=== PATIENT | male | born 1995 | race Caucasian/White ===

== ENCOUNTER 2018-12-26 10:11 | Emergency (ER) | payer OTHER ==
[~2018-12-26] VITALS: Ht 193 cm; Wt 102.3 kg
[2018-12-26 10:13] VITALS: Ht 193 cm; Wt 102.3 kg
[2018-12-26] MEDS ORDERED: TESSALON PERLE100 MG PO (10:59)
[2018-12-26 11:08] VITALS: BP 122/64
== END 2018-12-26 11:09 | disposition home or self-care (01) ==
LOC: D.ER 10:11
DX: J40 Bronchitis, not specified as acute or chronic (principal)

== ENCOUNTER 2019-04-05 10:35 | Emergency (ER) | payer OTHER ==
[~2019-04-05] VITALS: Ht 193 cm; Wt 81.8 kg
[~2019-04-05 10:35] MED LIST: TESSALON PERLE100 MG PO
[2019-04-05 10:42] VITALS: BP 124/75; Ht 193 cm; Wt 81.8 kg
[2019-04-05] MEDS ORDERED: ERYTHROMYCIN OPT1 GM EACH EYE (10:47)
== END 2019-04-05 10:56 | disposition home or self-care (01) ==
LOC: D.ER 10:35
DX: H10.9 Unspecified conjunctivitis (principal)

== ENCOUNTER 2019-08-22 07:10 | Emergency (ER) | payer SELFPAY ==
[~2019-08-22] VITALS: Ht 193 cm; Wt 104.5 kg
[~2019-08-22 07:10] MED LIST changes: +ERYTHROMYCIN OPT1 GM EACH EYE
[2019-08-22 07:18] VITALS: Ht 193 cm; Wt 104.5 kg
[2019-08-22 07:47] LABS: BILIRUBIN NEGATIVE (NEGATIVE); GLUCOSE NEGATIVE (NEGATIVE); KETONE NEGATIVE (NEGATIVE); NITRITE NEGATIVE (NEGATIVE); UROBILINOGEN NORMAL (NORMAL)
[2019-08-22 07:53] LABS: CALC OSMOLALITY 277 mosm/kg (275-300); CALCIUM 8.9 mg/dL (8.5-10.1); CARBON DIOXIDE 27.9 mmol/L (21.0-32.0); CHLORIDE - SERUM 103 mmol/L (98-107); CREATININE - SERUM 1.1 mg/dL (0.6-1.3); GLUCOSE 101 mg/dL (74-106); POTASSIUM - SERUM 4.3 mmol/L (3.5-5.1); SODIUM 139 mmol/L (136-145); UREA NITROGEN 13 mg/dL (7-18); eGFR NON AFRICAN AMERICAN 87 mL/min (90-120)
[2019-08-22 08:02] LABS: BASOPHILS 0.3 % (0-2); EOSINOPHILS 3.7 % (0-7); HEMATOCRIT 49.3 % (42.0-54.0); HEMOGLOBIN 16.2 g/dL (13.5-17.5); IMMATURE GRANULOCYTES 0.2 % (0-5); LYMPHOCYTES 30.1 % (15-50); MCH 31.5 pg (26.0-34.0); MCHC 32.9 g/dL (31.0-37.0); MCV 95.9 fL (80.0-100.0); MONOCYTES 10.1 % (2-11); NEUTROPHILS 55.6 % (40-80); PLATELET COUNT 208 10x3/uL (130-400); RBC 5.14 10x6/uL (4.20-6.10); RDW 12.8 % (11.5-14.5); WBC 6.2 10x3/uL (4.8-10.8)
[2019-08-22 08:06] LABS: ALBUMIN 4.5 g/dL (3.4-5.0); ALKALINE PHOSPHATASE 76 U/L (30-120); ALT (SGPT) 26 U/L (10-68); AMYLASE - SERUM 77 U/L (25-115); BILIRUBIN - TOTAL 0.46 mg/dL (0.2-1.3); LIPASE 151 U/L (73-393); PROTEIN - SERUM 7.5 g/dL (6.4-8.2)
[2019-08-22 08:07] LABS: TROPONIN-I < 0.017 ng/mL (0.000-0.060)
[2019-08-22] MEDS ORDERED: ZOFRAN ODT4 MG/UDTAB PO (08:59)
[2019-08-22] MEDS ORDERED: PEPCID40 MG PO (08:59)
[2019-08-22 09:03] VITALS: BP 114/66
== END 2019-08-22 09:10 | disposition home or self-care (01) ==
LOC: D.ER 07:10
PROVIDERS: Family Medicine
DX: R10.9 Unspecified abdominal pain (principal); R11.2 Nausea with vomiting, unspecified; R19.7 Diarrhea, unspecified